=== PATIENT | female | born 1985 | race Caucasian/White ===

== ENCOUNTER 2022-09-17 09:32 | Emergency (ER) | payer OTHER ==
[~2022-09-17] VITALS: Ht 165.1 cm; Wt 70.3 kg
[~2022-09-17 09:32] MED LIST: AMOX500 PO; BCP; CLOBETTC TP; IBUP600 PO; PRED20 PO; RXHYDACE PO; SILSUL1TC TOP
[2022-09-17] MEDS ORDERED: BUSP5 (09:56)
[2022-09-17] MEDS ORDERED: PROP10 (09:56)
[2022-09-17] MEDS ORDERED: METF500 (09:57)
[2022-09-17] MEDS ORDERED: Cyclobenzaprine5 MG (09:57)
== END 2022-09-17 10:11 | disposition home or self-care (01) ==
LOC: ER 09:32
DX: S50.11XA Contusion of right forearm, initial encounter (principal); X58.XXXA Exposure to other specified factors, initial encounter
CPT/HCPCS: 99282

== ENCOUNTER 2023-07-13 10:17 | Observation (INO) | payer OTHER ==
[~2023-07-13] VITALS: Ht 165.1 cm; Wt 120.0 kg
[~2023-07-13 10:17] MED LIST changes: +BUSP5 PO; +Cyclobenzaprine5 MG; +METF500 PO; +PROP10
[2023-07-13 10:50] LABS: BASOPHILS ABSOLUTE AUTO 0.05 K/mm3 (0.00-0.23); BASOPHILS PERCENT AUTO 1 % (0-2); EOSINOPHILS ABSOLUTE AUTO 0.09 K/mm3 (0.00-0.68); EOSINOPHILS PERCENT AUTO 1 % (0-6); Hematocrit 47.4 % (33.0-51.0); IMMATURE GRAN ABSOLUTE AUTO 0.01 K/mm3 (0.00-0.10); IMMATURE GRAN PERCENT AUTO 0 % (0-1); LYMPHOCYTES ABSOLUTE AUTO 1.55 K/mm3 (0.84-5.20); LYMPHOCYTES PERCENT AUTO 24 % (21-46); MONOCYTES PERCENT AUTO 8 % (4-13); Mean Corpuscular HGB 29.6 pg (26.0-34.0); Mean Corpuscular HGB Conc 33.8 g/dL (31.5-36.5); Mean Corpuscular Volume 88 fL (80-100); Mean Platelet Volume 9.4 fL (9.1-12.4); NEUTROPHILS ABSOLUTE AUTO 4.28 K/mm3 (1.96-9.15); NEUTROPHILS PERCENT AUTO 66 % (41-73); Platelet Count 238 K/mm3 (150-400); RDW Coefficient Variation 13.1 % (11.7-14.2); RDW Standard Deviation 41.7 fL (35.1-46.3); White Blood Cell Count 6.48 K/mm3 (4.00-11.30)
[2023-07-13 11:19] LABS: Bilirubin, Total 0.7 mg/dL (0.1-1.0); Creatinine, Blood 0.71 mg/dL (0.40-1.00); Globulin, Blood 4.1 g/dL (2.2-4.0); Potassium, Blood 4.4 mmol/L (3.5-5.5); Total Protein, Blood 8.1 g/dL (6.4-8.2)
[2023-07-13 12:25] LABS: Source, Urine Clean Catch
[2023-07-13 12:48] LABS: Bilirubin, Urine Neg (Neg); Blood, Urine Neg (Neg); Glucose Qualitative, Urine Neg (Neg); Ketones, Urine Neg (Neg); Leukocyte Esterase, Urine Neg (Neg); Nitrite, Urine Neg (Neg); Protein, Urine Neg (Neg); Specific Gravity, Urine 1.005 (1.003-1.022); Urobilinogen, Urine NORM (Normal)
[2023-07-13 12:53] LABS: Appearance, Urine Clear (Clear); Color, Urine Yellow (P-Yellow)
[2023-07-13 14:55] VITALS: BP 122/68
[2023-07-13] MEDS ORDERED: PROP60 PO ×2 (18:11→18:15)
[2023-07-13] MEDS ORDERED: CYCL10 PO (18:12)
[2023-07-13 18:22] VITALS: BP 111/61
--- NOTE | 2023-07-13 18:35 | NUR ---
SUMMARY: NO CHANGE SINCE ADMIT. VSS, A/O, PT INDEPENDENT IN ROOM. PT MEDICATED X1 FOR NAUSEA AND PAIN, PT OTHERWISE DID WELL. FLUIDS STARTED, PT AWARE TO BE NPO AT MIDNIGHT. HOME MEDS AND ALLERGIES UPDATED. NO SAFETY CONCERNS.
[2023-07-14] VITALS (15 sets, daily range): BP systolic 119–159; BP diastolic 79–101
[2023-07-14 05:11] LABS: BASOPHILS ABSOLUTE AUTO 0.06 K/mm3 (0.00-0.23); BASOPHILS PERCENT AUTO 1 % (0-2); EOSINOPHILS ABSOLUTE AUTO 0.12 K/mm3 (0.00-0.68); EOSINOPHILS PERCENT AUTO 2 % (0-6); Hematocrit 44.3 % (33.0-51.0); Hemoglobin 14.6 g/dL (11.5-16.0); IMMATURE GRAN ABSOLUTE AUTO 0.02 K/mm3 (0.00-0.10); IMMATURE GRAN PERCENT AUTO 0 % (0-1); LYMPHOCYTES ABSOLUTE AUTO 2.44 K/mm3 (0.84-5.20); LYMPHOCYTES PERCENT AUTO 34 % (21-46); MONOCYTES ABSOLUTE AUTO 0.77 K/mm3 (0.16-1.47); MONOCYTES PERCENT AUTO 11 % (4-13); Mean Corpuscular HGB 29.2 pg (26.0-34.0); Mean Corpuscular Volume 89 fL (80-100); Mean Platelet Volume 9.7 fL (9.1-12.4); NEUTROPHILS ABSOLUTE AUTO 3.68 K/mm3 (1.96-9.15); NEUTROPHILS PERCENT AUTO 52 % (41-73); Platelet Count 216 K/mm3 (150-400); RDW Coefficient Variation 12.9 % (11.7-14.2); RDW Standard Deviation 41.9 fL (35.1-46.3); White Blood Cell Count 7.09 K/mm3 (4.00-11.30)
[2023-07-14 05:44] LABS: Albumin, Blood 3.3 g/dL (3.4-5.0); Albumin/Globulin Ratio 1.1 (0.8-1.8); Bilirubin, Total 0.9 mg/dL (0.1-1.0); Bun/Creatinine Ratio 14.3 (12.0-20.0); Calcium, Blood 8.4 mg/dL (8.5-10.1); Creatinine, Blood 0.7 mg/dL (0.40-1.00); Globulin, Blood 2.9 g/dL (2.2-4.0); Potassium, Blood 3.9 mmol/L (3.5-5.5); Total Protein, Blood 6.2 g/dL (6.4-8.2)
--- NOTE | 2023-07-14 07:44 | NUR ---
SUMMARY NPO PENDING OR TODAY.
--- NOTE | 2023-07-14 15:57 | NUR ---
SUMMARY NO ACUTE CHANGES T/O SHIFT. PT TO PRE OP AT THIS TIME. [id number] DURING DAY FOR NAUSEA AND PAIN. PT WAS INDEPENDENT IN ROOM. A&OX4
--- NOTE | 2023-07-14 16:20 | NUR ---
report given to chad peña rn.
[2023-07-15 03:56] VITALS: BP 126/83
[2023-07-15 04:02] VITALS: BP 126/83
--- NOTE | 2023-07-15 07:23 | NUR ---
SUMMARY PT AMBULATORY,PAIN CONTROLLED WITH PO MEDS,VOIDING WITHOUT DIFF,LAP SITES BRUISED X2, BUT D/I,PTS HEART RATE ON INCLINE TO TEENS,I CALLED DR VALERIO FOR ORDER TO GIVEE PT HER INDERAL SHE TAKES AT HOME.PT HOPING FOR DISCHARGE TODAY.
[2023-07-15 07:28] VITALS: BP 124/76
[2023-07-15 09:12] VITALS: BP 126/72
[2023-07-15] MEDS ORDERED: Norco 5-325 Ta1 EACH PO (10:40)
--- NOTE | 2023-07-15 11:24 | NUR ---
DISCHARGE: PT ERIKA DIET, PASSING GAS AND HAVING BM'S. PAIN WELL MANAGED. DR. VALERIO IN ROOM AT ABOUT 1050. PACKET PRINTED AND PT EDUCATED. GIVEN SCRIPT FOR PAIN MED. PT LEFT UNIT VIA WHEELCHAIR WITH THIS RN AT ABOUT 1120
== END 2023-07-15 11:20 | disposition home or self-care (01) ==
LOC: ER 10:17 → SURS 10:18
PROVIDERS: Physician Assistant; Surgery; ADMIT Surgery
PROC: 0FT44ZZ Resection of Gallbladder, Percutaneous Endoscopic Approach (ICD-10-PCS; principal; 2023-07-14 15:30)
PROC: BF121ZZ Fluoroscopy of Gallbladder using Low Osmolar Contrast (ICD-10-PCS; principal; 2023-07-14 15:30)
DX: K80.12 Calculus of gallbladder with acute and chronic cholecystitis without obstruction (principal); E11.9 Type 2 diabetes mellitus without complications; I10 Essential (primary) hypertension; Z88.5 Allergy status to narcotic agent; E66.01 Morbid (severe) obesity due to excess calories; Z68.41 Body mass index [BMI] 40.0-44.9, adult
CPT/HCPCS: 36415; 74181; 74300; 76705; 80053; 81003; 82947; 83690; 85025; 88304; 94760; 94762; 96374; 96375; 96376; 99285-25; A9270; C1729; G0378; J0690; J1100; J1170; J1790; J1885; J2405; J2704; J2765; J3010; J7120

== ENCOUNTER 2024-08-24 07:57 | Day surgery (SDC) | payer OTHER ==
[~2024-08-24] VITALS: Ht 165.1 cm; Wt 120.5 kg
[2024-08-24] VITALS (10 sets, daily range): BP systolic 82–130; BP diastolic 41–87
[~2024-08-24 07:57] MED LIST changes: -BUSP5 PO; +Buspirone HCl15 MG PO; +CYCL10 PO; +DULO30 PO; +DULO60 PO; +Inderal60 MG PO; +Norco 5-325 Ta1 EACH PO; +PROP60 PO; +RYBELSUS3 MG PO; +calcium carbonate PO
[2024-08-24] MEDS ORDERED: Lactated Ringer's 1,000 ML IV SCH (08:15)
[2024-08-24] MEDS ORDERED: CeFAZolin Sodium 3,000 MG in NS 100 ML IV SCH (08:15)
[2024-08-24] MEDS ORDERED: propofoL 50 ML IV ONE ×3 (08:53→11:35)
--- NOTE | 2024-08-24 08:57 | NUR ---
History, Chart, Medications and Allergies reviewed before start of procedure. Patient confirms NPO status and agrees with scheduled surgery. Patient states she has had hysterectomy. NO Preop HCG indicated.
[2024-08-24] MEDS ORDERED: Scopolamine Hydrobromide Patch TOP ONE (09:00)
--- NOTE | 2024-08-24 09:18 | NUR ---
PATIENT INSTRUCTED TO REMOVE SCOPALAMINE PATCH IN 72 HOURS AND WASH HANDS AFTER HANDLING PATCH TO AVOID CONTACT WITH EYES.
[2024-08-24] MEDS ORDERED: Bupivacaine 0.5% HCl 5 MG/ML 30MLVIAL ONE (10:11)
[2024-08-24] MEDS ORDERED: Sugammadex Sodium 200 MG/2ML SDV (100 MG/ML) ONE (10:13)
[2024-08-24] MEDS ORDERED: propofoL 20 ML IV ONE (10:13)
[2024-08-24] MEDS ORDERED: Ondansetron HCl 2 MG / ML 2ML Vial ONE (10:13)
[2024-08-24] MEDS ORDERED: Rocuronium Bromide 10 MG/ML 5ML Injection IV ONE ×2 (10:13→10:20)
[2024-08-24] MEDS ORDERED: Dexamethasone Sod Phos 10 MG/ML 1ML VIAL ONE (10:13)
[2024-08-24] MEDS ORDERED: HYDROmorphone HCl/Pf 1MG SYR ONE (10:16)
[2024-08-24] MEDS ORDERED: FentaNYL Citrate 50 MCG/ML 2 ML Injection ONE (11:17)
[2024-08-24] MEDS ORDERED: Ondansetron HCl 2 MG / ML 2ML Vial IV PRN (11:45)
[2024-08-24] MEDS ORDERED: FentaNYL Citrate 50 MCG/ML 2 ML Injection IV PRN ×2 (11:45)
[2024-08-24] MEDS ORDERED: HYDROmorphone HCl/Pf 1MG SYR IV PRN ×2 (11:45)
[2024-08-24] MEDS ORDERED: Droperidol 5 mg/2 ml Vial IV PRN (11:45)
[2024-08-24] MEDS ORDERED: Prochlorperazine Edisylate 10 mg Vial IV PRN (11:45)
[2024-08-24] MEDS ORDERED: Labetalol HCL 5 MG/ML 4ML Injection (Single Dose) IV PRN (11:50)
[2024-08-24] MEDS ORDERED: Sodium Chloride 0.9% Inj 10 ML IV ONE (12:10)
[2024-08-24] MEDS ORDERED: HYDROcodone 5-APAP 325 TAB PO PRN (13:10)
--- NOTE | 2024-08-24 13:29 | NUR ---
1315 REPORT RECEIVED FROM EARNEST GÓMEZ. VSS. PT ON RA. PT A&OX4. PT ABLE TO REPOSITION SELF IN BED. PT REQUESTING PO FOOD AND FLUIDS AND TOLERATING THEM WELL. PT REPORTS 4/10 PAIN TO ABDOMEN. PT DENIES NAUSEA OR OTHER DISCOMFORTS. PT HAS GAUZE/TEGADERM TO ABD THAT IS C/D/I.
[2024-08-24] MEDS ORDERED: Phenylephrine HCl 10mg/ml 1 ml Vial ONE (13:38)
[2024-08-24] MEDS ORDERED: Phenylephrine HCl 100 MCG/ML-NS 10MLSYR (1MG/10ML) ONE ×2 (13:38)
--- NOTE | 2024-08-24 13:49 | NUR ---
Patient up to Ambulate independently. Gait steady. VSS AND CONSISTENT WITH PT BASELINE. PT REPORTS PAIN IS IMPROVING AND TOLERABLE, VERBALIZES READINESS TO GO HOME. Discharge instructions reviewed with patient. Patient verbalizes understanding. Copy given to patient to take home. Dressing to procedure site clean, dry, intact with no visible drainage, swelling, erythema or bruising noted. Patient States Post-Procedure ride home has been arranged. Discharged via wheelchair to private car for ride home. PT BELONGINGS RETURNED TO PT.
== END 2024-08-24 13:50 | disposition home or self-care (01) ==
LOC: ORSCMMR 07:57 → ORD 09:30 → ORSCMMR 09:30
PROVIDERS: Surgery
PROC: 0WUF0JZ Supplement Abdominal Wall with Synthetic Substitute, Open Approach (ICD-10-PCS; principal; 2024-08-24 09:30)
DX: K43.9 Ventral hernia without obstruction or gangrene (principal); E11.9 Type 2 diabetes mellitus without complications; I10 Essential (primary) hypertension; F41.9 Anxiety disorder, unspecified; E66.01 Morbid (severe) obesity due to excess calories; Z68.41 Body mass index [BMI] 40.0-44.9, adult; Z79.899 Other long term (current) drug therapy; Z79.85 Long-term (current) use of injectable non-insulin antidiabetic drugs; F17.290 Nicotine dependence, other tobacco product, uncomplicated
CPT/HCPCS: 82947; A9270; C1781; J1100; J1171; J2371; J2405; J2704; J3010; J7120